=== PATIENT | male | born 1965 | race Caucasian/White ===

== ENCOUNTER 2021-01-07 09:26 | Outpatient (CLI) | payer OTHER ==
[2021-01-07] MEDS ORDERED: EPINEPHrine 1 MG/ML AMP ONE (09:50)
[2021-01-07] MEDS ORDERED: Iopamidol 300 61% 50 ML VIAL FS ONE (09:50)
[2021-01-07] MEDS ORDERED: Lidocaine 1% PF 10 ML AMP ONE (09:50)
[2021-01-07] MEDS ORDERED: Gadobenate Dimeglumine 529 MG/1 ML (20ML VIAL) ONE (09:50)
[2021-01-07] MEDS ORDERED: Magnevist 469MG/ML 20 ML VIAL ONE (10:11)
== END 2021-01-07 09:27 | disposition home or self-care (01) ==
LOC: RAD 09:26
PROVIDERS: ATTEND Orthopaedic Surgery
DX: S46.012A Strain of muscle(s) and tendon(s) of the rotator cuff of left shoulder, initial encounter (principal); S96.912A Strain of unspecified muscle and tendon at ankle and foot level, left foot, initial encounter
CPT/HCPCS: 23350; A9579

== ENCOUNTER 2021-02-02 14:15 | Outpatient (CLI) | payer OTHER | END 2021-02-02 14:16 | disposition home or self-care (01) | LOC: TBSIIMAG 14:15 | PROVIDERS: ATTEND Family Medicine | DX: M47.22 Other spondylosis with radiculopathy, cervical region (principal) | CPT/HCPCS: 72141 ==

== ENCOUNTER 2021-03-21 12:13 | Outpatient (CLI) | payer OTHER ==
[2021-03-21 13:15] LABS: #Basophils 0.1 10x3/uL (0.0-0.2); #Eosinphils 0.4 10x3/uL (0.0-0.5); #Monocytes 0.8 10x3/uL (0.0-1.1); %Basophils 1.1 % (0.0-2.0); %Eosinophils 4.4 % (0.0-6.0); %Lymphocytes 37.1 % (18.0-47.0); %Neutrophils 49.2 % (40.0-75.0); Hemoglobin 14.6 g/dL (13.5-17.5); Mean Corpuscular Hemoglobin 31.4 pg (27.0-33.0); Mean Corpuscular Volume 95.1 fl (81.2-95.1); Platelet Count 313 10x3/uL (150-450); RBC Distribution Width 13.6 % (11.5-14.5); Red Blood Cell (RBC) Count 4.65 10x6/uL (4.32-5.72); White Blood Cell (WBC) Count 10.1 10x3/uL (3.5-10.5)
[2021-03-21 13:42] LABS: Anion Gap 14 mmol/L (10-20); BUN (Urea Nitrogen) 17 mg/dL (8.4-25.7); Calc. Creatinine Clearance 0 mL/min (70-130); Calcium 9.4 mg/dL (7.8-10.44); Carbon Dioxide 25 mmol/L (22-29); Chloride 103 mmol/L (98-107); Glucose 166 mg/dL (70-105); Potassium 4.1 mmol/L (3.5-5.1); Sodium 138 mmol/L (136-145)
[2021-03-22 08:00] LABS: SARS-CoV-2 PCR by NAA Not Detected (NotDetected)
== END 2021-03-21 12:14 | disposition home or self-care (01) ==
LOC: LABBT 12:13
PROVIDERS: ATTEND Orthopaedic Surgery
DX: Z01.818 Encounter for other preprocedural examination (principal); S46.012A Strain of muscle(s) and tendon(s) of the rotator cuff of left shoulder, initial encounter; Z98.890 Other specified postprocedural states; Z20.822 Contact with and (suspected) exposure to COVID-19
CPT/HCPCS: 80048; 85025; 93005; 93010; U0003; U0005

== ENCOUNTER 2021-03-24 09:32 | Day surgery (SDC) | payer OTHER ==
[2021-03-23 10:45] VITALS: BMI 41.5
[2021-03-24] MEDS ORDERED: Midazolam HCl 2 mg/2 ml Vial ONE (10:49)
[2021-03-24] MEDS ORDERED: Fentanyl 100 MCG/2 ML VIAL ONE (10:49)
[2021-03-24] MEDS ORDERED: ePHEDrine 50 MG/ML VIAL ONE (11:30)
[2021-03-24] MEDS ORDERED: PROPOFOL 200 MG/20 ML VIAL ONE (11:30)
[2021-03-24] MEDS ORDERED: Rocuronium Bromide 10 MG/ML (10ML VIAL) ONE (11:30)
[2021-03-24] MEDS ORDERED: Dexamethasone 20 MG/5 ML VIAL ONE (11:30)
[2021-03-24] MEDS ORDERED: Ropivacaine 0.5% HCl/PF (150 MG/30 ML VIAL) ONE (11:30)
[2021-03-24] MEDS ORDERED: Glycopyrrolate 0.2 MG/ML 5 ML SYRINGE ONE (11:30)
[2021-03-24] MEDS ORDERED: Lidocaine 1% PF 5 ML VIAL ONE (11:30)
[2021-03-24] MEDS ORDERED: Succinylcholine 200 MG/10 ml SYRINGE FS ONE (11:30)
[2021-03-24] MEDS ORDERED: Fentanyl 100 MCG/2 ML VIAL IV PRN (12:02)
[2021-03-24] MEDS ORDERED: Lidocaine 1% w/Epinephrine 1:100K 20 ML VIAL ONE (12:02)
[2021-03-24] MEDS ORDERED: traMADol HCl 50 MG TAB PO PRN ×2 (12:15)
[2021-03-24] MEDS ORDERED: Zolpidem Tartrate 5 MG TAB PO PRN (12:15)
[2021-03-24] MEDS ORDERED: Ondansetron PF 4 MG/2 ML Vial IVP PRN (12:15)
[2021-03-24] MEDS ORDERED: Promethazine HCl 25 MG/ML VIAL IM PRN ×2 (12:15→13:05)
[2021-03-24] MEDS ORDERED: HYDROcodone/Acetaminophen 10/325 mg Tablet PO PRN ×2 (12:15)
[2021-03-24] MEDS ORDERED: Ropivacaine 0.2% 550 ML 550 ML NERVE BLCK SCH (12:15)
[2021-03-24] MEDS ORDERED: SUGAMMADEX SODIUM 200 MG/2 ML VIAL ONE (12:53)
[2021-03-24] MEDS ORDERED: Promethazine HCl 25 MG/ML VIAL IVPB PRN (13:05)
[2021-03-24] MEDS ORDERED: Ondansetron HCl/PF 4 MG/2 ML Vial IVP PRN (13:05)
[2021-03-24] MEDS ORDERED: Ketorolac Tromethamine 30 MG/ML VIAL IVP PRN (13:05)
== END 2021-03-24 14:40 | disposition home or self-care (01) ==
LOC: SDC 09:32
PROVIDERS: ATTEND Orthopaedic Surgery
PROC: 0LQ24ZZ Repair Left Shoulder Tendon, Percutaneous Endoscopic Approach (ICD-10-PCS; principal; 2021-03-24)
DX: S46.012A Strain of muscle(s) and tendon(s) of the rotator cuff of left shoulder, initial encounter (principal); I10 Essential (primary) hypertension; E11.9 Type 2 diabetes mellitus without complications; E78.00 Pure hypercholesterolemia, unspecified; F17.200 Nicotine dependence, unspecified, uncomplicated; Z79.899 Other long term (current) drug therapy; Z88.5 Allergy status to narcotic agent; Z98.890 Other specified postprocedural states; X50.1XXA Overexertion from prolonged static or awkward postures, initial encounter
CPT/HCPCS: A4306; C1713; J0690; J1100; J2250; J2704; J2795; J3010; J3490